=== PATIENT | female | born 1990 | race Hispanic/Latino ===

== ENCOUNTER 2021-02-20 06:51 | Emergency (ER) | payer SELFPAY ==
[~2021-02-20] VITALS: Ht 157.5 cm; Wt 95.3 kg
[2021-02-20] MEDS ORDERED: ONDANSETRON 4MG INJ IVP ONE (07:30)
[2021-02-20] MEDS ORDERED: ONDANSETRON 4MG INJ ONE (07:38)
[2021-02-20 08:00] LABS: BASOPHILS % (AUTO) 0.4 % (0.0-5.0); EOSINOPHILS % (AUTO) 3.1 % (0.0-8.0); HEMATOCRIT 39.6 % (36-48); LYMPHOCYTES % (AUTO) 31.1 % (21.0-51.0); MEAN CORPUSCULAR HEMOGLOBIN 29.8 pg (27.0-33.0); MEAN CORPUSCULAR HGB CONC 32.6 g/dL (32.0-36.0); MEAN CORPUSCULAR VOLUME 91.5 fL (79-99); NEUTROPHILS % (AUTO) 58.1 % (40.0-77.0); PLATELET COUNT (AUTO) 350 K/uL (130-400); RED BLOOD CELL COUNT(AUTO) 4.33 MIL/uL (4.00-5.50); RED CELL DISTRIBUTION WIDTH 13.3 % (11.0-15.5); WHITE BLOOD COUNT (AUTO) 13.4 K/uL (4.8-10.8)
[2021-02-20 08:01] LABS: APPEARANCE,URINE Clear (CLEAR); BILIRUBIN,URINE Negative (NEGATIVE); COLOR,URINE Yellow (YELLOW); GLUCOSE, URINE (UA) Negative (NEGATIVE); KETONES,URINE Negative (NEGATIVE); LEUKOCYTE ESTERASE ,URINE Negative (NEGATIVE); NITRATE,URINE Negative (NEGATIVE); OCCULT BLOOD,URINE Negative (NEGATIVE); PROTEIN,URINE Negative (NEGATIVE)
[2021-02-20 08:03] LABS: HCG,QUAL RESULT NEGATIVE (NEGATIVE)
[2021-02-20 08:25] LABS: ALBUMIN 3.7 g/dL (3.5-5.0); BILIRUBIN,TOTAL 0.3 mg/dL (0.2-1.0); CREATININE 0.6 mg/dL (0.5-1.5); POTASSIUM 3.5 mmol/L (3.5-5.1); TOTAL PROTEIN, SERUM 8.3 g/dL (6.0-8.3)
[2021-02-20] MEDS ORDERED: KETOROLAC 30MG VIAL (30MG/ML) ONE (08:54)
[2021-02-20] MEDS ORDERED: KETOROLAC 30MG VIAL (30MG/ML) IV ONE (09:00)
[2021-02-20] MEDS ORDERED: ACET1TAB25 PO (09:45)
[2021-02-20] MEDS ORDERED: NAPR-1180 PO (09:45)
[2021-02-20] MEDS ORDERED: CIPR-278 PO (09:45)
[2021-02-20 10:03] VITALS: BP 146/77
== END 2021-02-20 10:04 | disposition home or self-care (01) ==
LOC: EDH 06:55
DX: K80.20 Calculus of gallbladder without cholecystitis without obstruction (principal); E66.9 Obesity, unspecified
CPT/HCPCS: 36415; 76705; 80053; 81003; 81025; 82150; 83690; 85025; 96374; 96375; 99284; J1885; J2405

== ENCOUNTER 2022-06-17 23:47 | Emergency (ER) | payer OTHER ==
[~2022-06-17] VITALS: Ht 157.5 cm; Wt 92.5 kg
[~2022-06-17 23:47] MED LIST: ACET-2079 PO; CIPR-278 PO; NAPR-1180 PO
[2022-06-18 01:25] VITALS: BP 129/77
[2022-06-18] MEDS ORDERED: HYDR25CA PO (01:35)
== END 2022-06-18 01:46 | disposition home or self-care (01) ==
LOC: EDH 23:47
DX: F41.9 Anxiety disorder, unspecified (principal); F32.A Depression, unspecified; G43.909 Migraine, unspecified, not intractable, without status migrainosus; Z79.1 Long term (current) use of non-steroidal anti-inflammatories (NSAID); Z90.49 Acquired absence of other specified parts of digestive tract
CPT/HCPCS: 93005

== ENCOUNTER 2022-10-28 01:26 | Emergency (ER) | payer OTHER ==
[~2022-10-28] VITALS: Ht 157.5 cm; Wt 94.3 kg
[~2022-10-28 01:26] MED LIST changes: +HYDR25CA PO
[2022-10-28 01:27] VITALS: BP 117/77
[2022-10-28] MEDS ORDERED: TRAZ-185 PO (05:09)
== END 2022-10-28 05:21 | disposition home or self-care (01) ==
LOC: EDH 01:26
DX: J06.9 Acute upper respiratory infection, unspecified (principal); F32.A Depression, unspecified; F41.9 Anxiety disorder, unspecified; Z79.899 Other long term (current) drug therapy